=== PATIENT | female | born 1950 | race Hispanic/Latino ===

== ENCOUNTER 2017-03-24 06:13 | Day surgery (SDC) | payer MEDICARE, OTHER ==
[2017-03-20 08:59] VITALS: BMI 17.2
[2017-03-24] MEDS ORDERED: Bupivacaine 0.5% Inj(30mL) ONE (07:25)
[2017-03-24] MEDS ORDERED: Propofol 10 mg/ml Inj (20 ML) ONE (07:59)
[2017-03-24] MEDS ORDERED: Ciprofloxacin 400mg/200ml D5W 400 MG/200 ML BAG IVPB ONE (08:07)
[2017-03-24] MEDS ORDERED: Succinylcholine 200 mg/10 ml Inj IV ONE (08:22)
[2017-03-24] MEDS ORDERED: Rocuronium 10 mg/ml (5 ml) ONE (08:22)
[2017-03-24] MEDS ORDERED: Phenylephrine 10 mg/ml Inj ONE (08:22)
[2017-03-24] MEDS ORDERED: ePHEDrine 50 mg/ml Inj ONE (08:22)
[2017-03-24] MEDS ORDERED: Neostigmine Methylsulfate 3mg/3ml Syringe IV ONE (09:26)
--- NOTE | 2017-03-24 09:35 | PCM.SURG1 ---
Surgeon's Initial Post Op Note - Surgeon's Notes Surgeon: Dr. Amin Sheet Tailer: Dr. Juarez PGY3; Dr. Watt PGY1; Dr. Hernandez PGY1 Type of Anesthesia: General Endo Anesthesia Administered By: [email or web address] Pre-Operative Diagnosis: Left Inguinal Hernia Operative Findings: Indirect Left Inguinal Hernia Post-Operative Diagnosis: same Operation Performed: Left Inguinal Hernia Repair, with Mesh Specimen/Specimens Removed: lipoma, hernia sac Estimated Blood Loss: EBL {In ML}: 5 Blood Products Given: N/A Post-Op Condition: Good Date of Surgery/Procedure: 03/24/17 Time of Surgery/Procedure: 09:35
[2017-03-24] MEDS ORDERED: Oxycodone/Acetaminophen 5/325 mg Tab PO ONE ×2 (09:36→10:40)
[2017-03-24] MEDS ORDERED: HYDROmorphone 0.5 mg/0.5 ml ISec ONE ×2 (09:59→10:19)
[2017-03-24] MEDS: HYDROmorphone 0.5 mg/0.5 ml ISec IVP PRN ×2 (10:00→10:18)
[2017-03-24] MEDS ORDERED: Oxycodone/Acetaminophen 5/325 mg Tab ONE (10:40)
[2017-03-24 10:46] VITALS: O2SAT 98
[2017-03-24 11:31] VITALS: RESP 20; TEMP 96.1
[2017-03-24 12:45] VITALS: BP 106/54; PULSE 55
--- NOTE | 2017-03-24 13:17 | OP ---
PROCEDURE DATE: 03/24/2017 PREOPERATIVE DIAGNOSIS: Left inguinal hernia. POSTOPERATIVE DIAGNOSIS: Left inguinal hernia. PROCEDURE PERFORMED: Left inguinal hernia repair with mesh. SURGEON: Cristian Amin MD BREAKDOWN WORKER: Dr. Juarez. TYPE OF ANESTHESIA: General endotracheal. ANESTHESIA ADMINISTERED BY: Dr. Bucio. ESTIMATED BLOOD LOSS: Minimal. SPECIMEN: Hernia sac and cord lipoma. INDICATIONS: The patient is a 66-year-old female with history of bulge in the left groin associated with tenderness and discomfort, was examined and was noted to have left inguinal hernia, was scheduled for the repair. DESCRIPTION OF PROCEDURE: The patient was brought to the operating room and placed on the operative table in the supine position. The patient was connected to the EKG, blood pressure, and pulse oximetry monitors. The patient then underwent general endotracheal anesthesia and was prepped and draped in usual sterile fashion. First time-out procedure took place, everybody in the room agreed as of the patient's identity, diagnoses, and procedure to be performed. Using lidocaine mixed with Marcaine the area of incision was infiltrated and the incision was made through the subcutaneous fascia down to the external oblique aponeurosis. This was incised along its fibers and carefully underlying round ligament and hernia were exposed. The floor of the inguinal canal appeared to be slightly weakened and indirect hernia was coming out along the round ligament. This was mobilized and carefully elevated. The ilioinguinal nerve was carefully placed aside in order avoid injury. The internal ring was then carefully dissected out and preperitoneal space was mobilized. The hernia sac and cord lipoma were amputated. The Bard plug mesh was used to repair the hernia with palate suture to the edges of the transversalis fascia and inguinal ligament in order to keep the plug in place in the preperitoneal space. The only portion of the mesh was now put flatly on the floor of the inguinal canal. Now the round ligament and the ilioinguinal nerve were placed back in its original position. The external oblique aponeurosis was sutured together using 3-0 Vicryl. The plug was sutured in place using 0 Vicryl. The area of the repair was now carefully infiltrated with lidocaine and mixed with Toradol. The wound was copiously irrigated. There was excellent hemostasis. The wound was closed in layers using 3-0 Vicryl for the deep dermal layer and 4-0 Monocryl for skin. Sterile Dermabond dressing was applied to the wound. The patient tolerated the procedure well and there were no complications. The patient was awakened, extubated, and transferred to recovery room for further observation. Cristian Amin MD
== END 2017-03-24 18:00 | disposition home or self-care (01) ==
LOC: SDS 06:13
PROVIDERS: ATTEND General Practice
DX: K40.90 Unilateral inguinal hernia, without obstruction or gangrene, not specified as recurrent (principal); D17.1 Benign lipomatous neoplasm of skin and subcutaneous tissue of trunk; F41.9 Anxiety disorder, unspecified; Z88.3 Allergy status to other anti-infective agents; Z88.0 Allergy status to penicillin; Z88.8 Allergy status to other drugs, medicaments and biological substances
CPT/HCPCS: 49505; 88302; J0330; J0744; J1170; J1885 ×2; J2370; J2405; J2704; J2710; J2765; J3010